=== PATIENT | female | born 1975 | race Hispanic/Latino ===

== ENCOUNTER 2019-04-11 06:30 | Observation (INO) | payer OTHER ==
[2019-04-09 16:05] VITALS: BP 145/83
[2019-04-09 16:42] LABS: HEMATOCRIT 41.8 % (36-48); LYMPHOCYTES % (AUTO) 21.3 % (21.0-51.0); MEAN CORPUSCULAR HEMOGLOBIN 30.1 pg (27.0-33.0); MEAN CORPUSCULAR HGB CONC 34.1 g/dL (32.0-36.0); MEAN CORPUSCULAR VOLUME 88.2 fL (79-99); MONOCYTES % (AUTO) 6.6 % (3.0-13.0); NEUTROPHILS % (AUTO) 67.1 % (40.0-77.0); PLATELET COUNT (AUTO) 215 K/uL (130-400); RED BLOOD CELL COUNT(AUTO) 4.74 MIL/uL (4.00-5.50); RED CELL DISTRIBUTION WIDTH 13.4 % (11.0-15.5); WHITE BLOOD COUNT (AUTO) 10.4 K/uL (4.8-10.8)
[2019-04-10] MEDS: CEFAZOLIN SODIUM 1 GM VIAL IVP SCH (10:45)
[2019-04-11] VITALS (20 sets, daily range): BP systolic 94–157; BP diastolic 49–98
[~2019-04-11] VITALS: Ht 170.2 cm; Wt 100.7 kg
[2019-04-11] MEDS: CALDOLOR 800MG+NS 250ML 250 ML IV SCH ×3 (05:00→23:20)
[2019-04-11] MEDS ORDERED: LACTATED RINGERS 1000ML 1,000 ML IV ONE (10:37)
[2019-04-11] MEDS ORDERED: MIDAZOLAM HCL 1 MG/ML 2ML VIAL ONE (12:20)
[2019-04-11] MEDS ORDERED: ROCURONIUM 10MG/1ML SYR 10 MG/ML ML ONE (12:20)
[2019-04-11] MEDS ORDERED: FENTANYL CITRATE PF 50 MCG/1 ML 5ML AMP IV ONE (12:20)
[2019-04-11] MEDS ORDERED: LIDOCAINE HCL MPF 1% 5ML VIAL ONE (12:20)
[2019-04-11] MEDS ORDERED: PROPOFOL 10 MG/ML 20ML VIAL IV ONE (12:20)
[2019-04-11] MEDS: CEFAZOLIN SODIUM 1 GM VIAL IVP SCH (12:35)
[2019-04-11] MEDS ORDERED: GLYCOPYRROLATE 1 MG/5 ML SYRINGE ONE (13:45)
[2019-04-11] MEDS ORDERED: NEOSTIGMINE 5MG/5ML SYR IV ONE (13:45)
[2019-04-11] MEDS ORDERED: HYDROMORPHONE 1 MG/1 ML AMP ONE (14:13)
[2019-04-11] MEDS ORDERED: MEPERIDINE-PF 25 MG/ML SYG ONE ×2 (15:09→21:20)
[2019-04-11] MEDS ORDERED: HYDROCODONE/ACETAMINOPHEN 5/325 MG TAB PO PRN (15:15)
[2019-04-11] MEDS ORDERED: DOCUSATE SODIUM 100 MG CAP PO PRN (15:15)
[2019-04-11] MEDS ORDERED: SIMETHICONE 80 MG TAB.CHEW PO PRN (15:15)
[2019-04-11] MEDS ORDERED: MEPERIDINE-PF 75 MG/ML SYG IM PRN (15:15)
[2019-04-11] MEDS ORDERED: ONDANSETRON HCL 4 MG/2 ML VIAL IVP PRN (15:15)
[2019-04-11] MEDS ORDERED: ACETAMINOPHEN-CODEINE 300/30MG TAB PO PRN ×2 (15:15)
[2019-04-11] MEDS ORDERED: PROMETHAZINE HCL 25 MG/ML 1ML AMPULE IM PRN (15:15)
[2019-04-11] MEDS ORDERED: BISACODYL 10 MG SUPP.RECT RC PRN ×2 (15:15)
[2019-04-11] MEDS ORDERED: DIPH,PERTUSS(ACELL),TET VAC/PF 0.5 ML VIAL IM SCH (15:15)
[2019-04-11] MEDS: PROMETHAZINE HCL 25 MG/ML 1ML AMPULE IM PRN ×2 (16:20→21:24)
[2019-04-11 17:23] LABS: HEMATOCRIT 36.3 % (36-48)
[2019-04-11] MEDS: IBUPROFEN 800 MG TAB PO SCH (18:29)
[2019-04-11] MEDS ORDERED: MEPERIDINE-PF 50 MG/ML SYG ONE (21:20)
[2019-04-11] MEDS: SIMETHICONE 80 MG TAB.CHEW PO PRN (21:31)
[2019-04-11] MEDS: DOCUSATE SODIUM 100 MG CAP PO PRN (21:32)
[2019-04-11] MEDS: DEXTROSE 5 %-0.45 % NACL 1,000 ML IV PRN (23:21)
--- NOTE | 2019-04-12 04:30 | NUR ---
ACTIVITY/COMFORT HAS BEEN RESTING W/O ANY COMPLAINTS, REFUSES TO DANGLE, VERBALIZED TOO SLEEPY Addendum: 04/12/19 at 0501 by ARPITA ROMAN LVN Amended: Links added.
[2019-04-12 04:35] VITALS: BP 132/85
[2019-04-12] MEDS: CALDOLOR 800MG+NS 250ML 250 ML IV SCH (06:33)
[2019-04-12 07:07] LABS: HEMATOCRIT 36.5 % (36-48); MEAN CORPUSCULAR HEMOGLOBIN 29.2 pg (27.0-33.0); MEAN CORPUSCULAR HGB CONC 33.3 g/dL (32.0-36.0); MEAN CORPUSCULAR VOLUME 87.8 fL (79-99); PLATELET COUNT (AUTO) 200 K/uL (130-400); RED BLOOD CELL COUNT(AUTO) 4.16 MIL/uL (4.00-5.50); RED CELL DISTRIBUTION WIDTH 13.5 % (11.0-15.5); WHITE BLOOD COUNT (AUTO) 14.3 K/uL (4.8-10.8)
[2019-04-12 07:22] VITALS: BP 141/71
[2019-04-12] MEDS: IBUPROFEN 800 MG TAB PO SCH ×2 (08:38→15:20)
[2019-04-12] MEDS: SIMETHICONE 80 MG TAB.CHEW PO PRN ×2 (10:35→12:54)
[2019-04-12] MEDS: DOCUSATE SODIUM 100 MG CAP PO PRN (10:35)
--- NOTE | 2019-04-12 10:38 | NUR ---
COATS COATS REMOVED, CATHETER TIP INTACT, 1200mL OF CLEAR PALE YELLOW URINE REMOVED, SEBLE CARE PROVIDED; PT OOB TO CHAIR, DB&C, PO DISCUSSED, PT VERBALIZED UNDERSTANDING AND TOLERATED EVERYTHING WELL
[2019-04-12 11:36] VITALS: BP 133/76
[2019-04-12] MEDS: DEXTROSE 5 %-0.45 % NACL 1,000 ML IV PRN (12:37)
--- NOTE | 2019-04-12 12:38 | NUR ---
ACTIVITY PT AMBULATING HALLWAY, STEADY GAIT, TOLERATING WELL, NO C/O PAIN
--- NOTE | 2019-04-12 14:13 | NUR ---
DISCHARGE: DISCHARGE INSTRUCTIONS GIVEN TO PT ON SELF CARE POST TVH, A&P REPAIR,GET PLICATION. INSTRUCTED ON SITZ BATH TID. PT RECEIVED RX FOR MEDS PRIOR TO ADMISSION TO THE HOSP AND ALREADY HAS MEDICATIONS AT HOME. INSTRUCTED TO TAKE DIRECTED. TO CALL DR MOORE OFFICE SUNDAY AND MAKE FOLLOW UP 1-2 WEEKS. UNDERSTANDING VERBALIZED AND COPIES OF ALL INSTRUCTIONS GIVEN TO PT.
[2019-04-12 15:17] VITALS: BP 109/64
--- NOTE | 2019-04-12 17:25 | NUR ---
DISCHARGE PT STABLE, NO PAIN, NO COMPLAINTS; PT LEFT UNIT, VIA WHEELCHAIR, ACCOMPANIED BY RN AND FAMILY MEMBERS CARRYING ALL PERSONAL BELONGINGS, INSTRUCTIONS, AND SITZ BATH; PT LEFT FACILITY IN PERSONAL VEHICLE
== END 2019-04-12 17:25 | disposition home or self-care (01) ==
LOC: DAH 06:30 → DAHIP 06:31 → WSH 16:06
PROVIDERS: ADMIT Obstetrics & Gynecology; ATTEND Obstetrics & Gynecology
DX: N92.1 Excessive and frequent menstruation with irregular cycle (principal); N39.3 Stress incontinence (female) (male); N81.10 Cystocele, unspecified; N81.6 Rectocele; Z79.899 Other long term (current) drug therapy
CPT/HCPCS: 36415 ×3; 57260; 58262; 85014; 85018; 85025; 85027; 86850; 86900; 86901; 88307; 96365; 96366; 96372; A4344; A4351; A4510; A4600; G0378 ×24; J0690; J1170; J1741 ×3; J2175 ×4; J2250; J2550 ×2; J2704; J2710; J3010; J3490 ×2; J7120 ×2